=== PATIENT | female | born 1965 | race Caucasian/White ===

== ENCOUNTER 2021-08-03 19:55 | Emergency (ER) | payer OTHER ==
[2021-08-03] MEDS ORDERED: NORFLEX 100 MG100 MG PO (22:38)
== END 2021-08-03 22:50 | disposition home or self-care (01) ==
LOC: ER1 19:55
DX: S29.011A Strain of muscle and tendon of front wall of thorax, initial encounter (principal); X58.XXXA Exposure to other specified factors, initial encounter
CPT/HCPCS: 71111; 96372; 99283; J1885; J2360